=== PATIENT | male | born 1970 | race Caucasian/White ===

== ENCOUNTER 2019-08-07 21:06 | Emergency (ER) | payer MEDICAID ==
[~2019-08-07] VITALS: Ht 167.6 cm; Wt 60.8 kg
[2019-08-07 21:16] VITALS: Ht 167.6 cm; Wt 60.8 kg
[2019-08-08 00:25] VITALS: BP 128/78
== END 2019-08-08 00:25 | disposition home or self-care (01) ==
LOC: ED 21:06
DX: S20.212A Contusion of left front wall of thorax, initial encounter (principal); S10.91XA Abrasion of unspecified part of neck, initial encounter; S09.8XXA Other specified injuries of head, initial encounter; I10 Essential (primary) hypertension; Y04.8XXA Assault by other bodily force, initial encounter; Y93.89 Activity, other specified; Y92.89 Other specified places as the place of occurrence of the external cause; Y99.8 Other external cause status

== ENCOUNTER 2019-08-16 06:57 | Emergency (ER) | payer MEDICAID ==
[~2019-08-16] VITALS: Ht 165.1 cm; Wt 60.8 kg
[2019-08-16 07:03] VITALS: Ht 165.1 cm; Wt 60.8 kg
[2019-08-16 07:28] VITALS: BP 138/78
== END 2019-08-16 07:17 | disposition home or self-care (01) ==
LOC: ED 06:57
DX: J02.9 Acute pharyngitis, unspecified (principal); H92.02 Otalgia, left ear; I10 Essential (primary) hypertension